=== PATIENT | female | born 1930 | race Caucasian/White ===

== ENCOUNTER 2016-07-15 10:52 | Outpatient (CLI) | payer MEDICARE ==
[~2016-07-15] VITALS: Ht 170.2 cm; Wt 70.9 kg
[2016-07-15 11:46] VITALS: BP 153/63; Ht 170.2 cm; Wt 70.9 kg
[2016-07-15] MEDS ORDERED: ELIQUIS5 MG PO (12:01)
[2016-07-15] MEDS ORDERED: PACERONE200 MG PO (12:01)
[2016-07-15] MEDS ORDERED: TOPROL XL25 MG PO (12:02)
[2016-07-15] MEDS ORDERED: SYNTHROID112 MCG PO (12:03)
[2016-07-15] MEDS ORDERED: FUROSEMIDE40 MG PO (12:04)
[2016-07-15 12:16] LABS: INR 1.49 (0.85-1.17); PROTIME 17.9 SECONDS (11.6-15.0)
[2016-07-15 12:19] LABS: ANION GAP 11.4 mmol/L (8-16); CALCIUM 8.9 mg/dL (8.5-10.1); CARBON DIOXIDE 28.9 mmol/L (21.0-32.0); CREATININE - SERUM 0.8 mg/dL (0.6-1.3); POTASSIUM - SERUM 3.3 mmol/L (3.5-5.1)
[2016-07-15 12:47] LABS: BASOPHILS 0.3 % (0.0-2.0); EOSINOPHILS 0.8 % (0-7); HEMATOCRIT 37.9 % (36.0-48.0); HEMOGLOBIN 12.5 g/dL (12-16); IMMATURE GRANULOCYTES 0.8 % (0-5); LYMPHOCYTES 9.2 % (15-50); MEAN PLATELET VOLUME 9.1 fL (7.4-10.4); MONOCYTES 7.3 % (2-11); NEUTROPHILS 81.6 % (40-80); PLATELET COUNT 408 10x3/uL (130-400); RBC 4.03 10x6/uL (4.00-5.40); RDW 15.5 % (11.5-14.5); WBC 10.3 10x3/uL (4.8-10.8)
--- NOTE | 2016-07-15 14:11 | NUR ---
1300 DR ROWLAND HERE, SPOKE WITH PT. EKG SHOWS PT IS NOT IN ATRIAL FIBRILLATION. PROCEDURE CANCELLED, PT TO FOLLOW UP WITH DR ROWLADN IN 2 WEEKS, AND CONTINUE HOME MEDICATIONS. 1315 IV DC'D WITH CATH INTACT. ASSISTED PT UP TO THE BATHROOM AND PT VOIDED QS. 1325 REVIEWED DC INSTRUCTIONS WITH PT WHO VERBALIZES UNDERSTANDING. PT ESCORTED TO PRIVATE AUTO VIA WC BY STAFF WITH DRIVING HER HOME.
== END 2016-07-15 13:25 | disposition home or self-care (01) ==
LOC: D.CATH 10:52
PROVIDERS: Internal Medicine Cardiovascular Disease
DX: I48.91 Unspecified atrial fibrillation (principal); Z53.8 Procedure and treatment not carried out for other reasons